=== PATIENT | female | born 1990 ===

== ENCOUNTER 2020-12-25 20:22 | Emergency (ER) | payer OTHER ==
[~2020-12-25] VITALS: Ht 154.9 cm; Wt 64.9 kg
[~2020-12-25 20:22] MED LIST: GILTUSS TR TAB1 EACH PO; INTESTINEX1 CA1 PO; OSEL75CA PO
[2020-12-25] MEDS ORDERED: PRENATAL + DHA1 EAC1 (20:31)
== END 2020-12-25 23:11 | disposition home or self-care (01) ==
LOC: ER 20:22
DX: O20.9 Hemorrhage in early pregnancy, unspecified (principal)

== ENCOUNTER 2021-01-18 10:57 | Emergency (ER) | payer OTHER ==
[~2021-01-18] VITALS: Ht 154.9 cm; Wt 65.8 kg
[~2021-01-18 10:57] MED LIST changes: +PRENATAL + DHA1 EAC1
== END 2021-01-18 19:27 | disposition home or self-care (01) ==
LOC: ER 10:57
DX: O02.1 Missed abortion (principal)